=== PATIENT | female | born 1955 | race Caucasian/White ===

== ENCOUNTER 2024-05-17 15:49 | Emergency (ER) | payer MEDICARE, MEDICAID, SELFPAY ==
[2024-05-17] VITALS (14 sets, daily range): BP systolic 126–196; BP diastolic 60–87; PULSE 62–73; RESP 18; TEMP 37; O2SAT 97–98; BMI 31.7
--- NOTE | 2024-05-17 15:59 | ED_ITS ---
HPI - Back Pain/Injury General Chief Complaint: Fall Stated Complaint: Bilateral hip pain/GLF Time Seen by Provider: 05/17/24 15:58 History of Present Illness HPI Narrative: Patient is a 69-year-old female with no significant past medical history comes into the ED via EMS for evaluation of mechanical trip and fall. She states that prior to arrival she was going out the door and had a mechanical trip and fall landed on her buttock. Had difficulty standing secondary to pain therefore called the ambulance. Normally walks with a walker. She does not take any blood thinners. Denies trauma to the head. Denies any other symptoms of headache visual disturbances chest pain shortness of breath fever chills nausea vomiting abdominal pain or any other GI/ symptoms. Denies any syncopal or presyncopal symptoms prior or after the episode. Related Data Allergies Allergy/AdvReac Type Severity Reaction Status Date / Time amoxicillin Allergy Verified 05/17/24 15:57 codeine Allergy Verified 05/17/24 15:57 Iodinated Contrast Media Allergy Verified 05/17/24 16:01 Latex, Natural Rubber Allergy Verified 05/17/24 15:57 morphine Allergy Verified 05/17/24 15:57 Penicillins Allergy Verified 05/17/24 15:57 Review of Systems Review of Systems Narrative: HEENT: Denies headache, eye drainage, eye irritation, head trauma, sore throat, voice change Cardiovascular: Denies any chest pain, palpitations, shortness of breath, tachycardia Respiratory: Denies any shortness of breath, cough, wheeze, stridor GI/: Denies any abdominal pain, nausea, vomiting, diarrhea, bright red blood per rectum, melanotic stools, urinary frequency, urinary retention, dysuria, hematuria MSK: Denies any joint pain, muscle pains, swelling Skin: Denies any rashes, lesions, discoloration Neuro: Denies any headache, lightheadedness, dizziness, fainting, weakness Psych: Denies SI/HI Patient History Social History Smoking Status: Unknown if ever smoked Exam Narrative Exam Narrative: General: Cooperative, comfortable, well-developed, not in acute distress HEENT: Normocephalic, atraumatic, PERRLA, normal sclera, eyelids normal, Neck: Active full range of motion, atraumatic Chest: Normal to inspection, negative crepitus, no overlying erythema ecchymosis Respiratory: Normal respiratory effort, not in acute respiratory distress, clear to auscultation bilaterally negative cough, wheeze, tachypnea, rhonchi, rales Cardiology: Regular rate rhythm negative gallop, murmur, rubs GI/: Normal to inspection, soft, nonrigid, no tenderness to palpation, exam deferred MSK: tenderness to palpation of bilateral greater trochanters, decreased range of motion secondary to pain, however neurovascularly intact bilateral lower extremities no crepitus no shortened or external legs Skin: No rashes lesions noted Neuro: Alert awake oriented x3, moves all 4 extremities spontaneously, cranial nerves intact, able to answer all questions appropriately follows commands appropriately Psych: Cooperative, negative suicidal or homicidal ideations Initial Vital Signs Initial Vital Signs: Vital Signs Temperature 98.6 F 05/17/24 15:57 Pulse Rate 68 05/17/24 15:57 Respiratory Rate 18 05/17/24 15:57 Blood Pressure 192/87 H 05/17/24 15:57 Pulse Oximetry 98 05/17/24 15:57 Oxygen Delivery Method Room Air 05/17/24 15:57 Course Orders Ordered: ED Orders 05/17/24 16:04 XR lumbar spine 2-3V Stat XR pelvis 1-2V Stat Discontinued Medications Baclofen (Baclofen 10 Mg Tablet) 10 mg PO NOW ONE Stop: 05/17/24 16:07 Last Admin: 05/17/24 16:50 Dose: 10 mg Documented By: TORREY Ketorolac Tromethamine (Ketorolac 30 Mg/Ml Vial) 15 mg IV NOW ONE Stop: 05/17/24 16:07 Last Admin: 05/17/24 16:36 Dose: Not Given Documented By: GEOVANNA Ketorolac Tromethamine (Ketorolac 30 Mg/Ml Vial) 15 mg IM NOW ONE Stop: 05/17/24 16:26 Last Admin: 05/17/24 16:49 Dose: 15 mg Documented By: TORREY Vital Signs Vital signs: Vital Signs - 8 hr 05/17/24 15:57 05/17/24 16:10 05/17/24 16:11 Temperature 98.6 F Pulse Rate 68 65 62 Respiratory Rate 18 Blood Pressure 192/87 H Pulse Oximetry 98 98 97 Oxygen Delivery Method Room Air 05/17/24 16:11 05/17/24 16:15 05/17/24 16:15 Temperature Pulse Rate 65 Respiratory Rate Blood Pressure 186/85 H 191/87 H Pulse Oximetry 97 Oxygen Delivery Method 05/17/24 16:18 05/17/24 16:18 Temperature Pulse Rate 64 Respiratory Rate Blood Pressure 191/87 H Pulse Oximetry 98 Oxygen Delivery Method Room Air MDM - Back Pain/Injury Differential Diagnosis Differential diagnosis: Likely lumbar radiculopathy, sciatica, strain of lumbar region and other ( Fracture) MDM Narrative Medical decision making narrative: patient is a 69-year-old female who presents to the ED with ambulance for evaluation of mechanical trip and fall. States that she was getting out of her house when she fell onto her buttock region. Had difficulty getting up therefore called paramedics. X-ray showing age indeterminate L1 fracture with 30% loss, patient states that she knows of this she has not complaining of any midline lumbar pain no saddle paresthesias no numbness weakness tingling no lo wer extremities. X-ray of the pelvis without any acute fractures. Patient was able to stand bear weight and pivot with assistance which is her baseline. Patient was instructed to follow up with outpatient specialists she verbalized understanding of this and agrees to being discharged home with outpatient follow-up. Discharge Plan Departure Patient Disposition: Home Clinical Impression: Contusion of muscle Degenerative disc disease Qualifiers: Spinal region: lumbar Qualified Code(s): M51.36 - Other intervertebral disc degeneration, lumbar region Instructions: How to Prevent Falls Activity Restrictions/Additional Instructions: Please follow up with your PCP and orthopaedic surgeon for continue eval and treatment of you symptoms Please read the discharge instructions sheet carefully and bring all papers to all doctor follow-up visits, as it may contain information that your doctor may want to see. Disease processes change and evolve, if your symptoms worsen or if you develop any new symptoms that are concerning to you please return for evaluation. Your evaluation today does not show any evidence of any life- threatening/serious illnesses requiring admission to the hospital or surgery. Please follow-up with your doctor for re-evaluation in approximately 1 day. Seek immediate medical attention for any worrisome symptoms. Stand Alone Forms: Patient Portal/API
--- NOTE | 2024-05-17 16:04 | DI.RAD.S_ITS ---
PROCEDURE: XR PELVIS 1-2V INDICATIONS: pain s/p mechanical trip and fall TECHNIQUE: 1 view(s) of the pelvis acquired. COMPARISON: None. FINDINGS: Bones: No fractures or dislocations. Moderate bilateral hip joint osteoarthritic changes are seen. No evidence of avascular necrosis of femoral head. No suspicious bony lesions. Soft tissues: Visualized bowel gas pattern is normal. No suspicious soft tissue calcifications. IMPRESSION: Moderate bilateral hip joint osteoarthritis. No acute fracture or dislocation. No evidence of avascular necrosis. Dictated by: Jose Conner M.D. on 05/17/2024 at 17:16 Approved by: Jose Conner M.D. on 05/17/2024 at 17:17
--- NOTE | 2024-05-17 16:04 | DI.RAD.S_ITS ---
PROCEDURE: XR LUMBAR SPINE 2-3V INDICATIONS: pain s/p mechanical trip and fall TECHNIQUE: 4 views of the lumbar spine were acquired. COMPARISON: None. FINDINGS: Bones: 5 [id number] vertebrae are present. There is there is 8 mm retrolisthesis of L1 on L2. 5 mm anterolisthesis of L4 on L5 is seen.. In in anterior wedge compression deformity involving superior endplate of L1 is seen with up to 30% loss of L1 vertebral body height anteriorly. No other compression fracture is seen. Degenerative disc disease throughout lower thoracic and lumbar spine is seen.. No suspicious bony lesions. Soft tissues: Overlying bowel gas pattern is normal. No suspicious soft tissue calcifications. IMPRESSION: 1. Age indeterminate anterior wedge compression deformity at L1 level with up to 30% loss of L1 vertebral body height anteriorly. 2. Grade 1 spondylolisthesis at L1-2 and L4-5 levels. 3. Degenerative disc disease throughout lower thoracic and lumbar spine. Dictated by: Jose Conner M.D. on 05/17/2024 at 17:12 Approved by: Jose Conner M.D. on 05/17/2024 at 17:15
[2024-05-17] MEDS: KETOROLAC 30 MG/ML VIAL 15 MG IM (16:49)
[2024-05-17] MEDS: BACLOFEN 10 MG TABLET PO (16:50)
== END 2024-05-17 18:52 | disposition home or self-care (01) ==
PROVIDERS: Emergency Provider Student in an Organized Health Care Education/Training Program
DX: M51.36 Other intervertebral disc degeneration, lumbar region (principal); S30.0XXA Contusion of lower back and pelvis, initial encounter; M25.552 Pain in left hip; M25.551 Pain in right hip; W01.0XXA Fall on same level from slipping, tripping and stumbling without subsequent striking against object, initial encounter
CPT/HCPCS: 72100; 72170; 96372; 99283; J1885